=== PATIENT | female | born 1975 | race Caucasian/White ===

== ENCOUNTER → 2020-10-07 13:37 | Outpatient (CLI) | payer BC, SELFPAY ==
--- NOTE | ~2020-10-07 | MM_ITS ---
EXAMINATION: MM screening [facility] w ryder HISTORY: Screening mammogram TECHNIQUE: Craniocaudal and mediolateral oblique 3-D tomosynthesis images were obtained and synthetic 2-D images were generated. CAD analysis was submitted and interpreted. COMPARISON: 09/05/2018 bilateral digital screening mammogram 08/30/2017 diagnostic right digital mammogram and right breast ultrasound 08/14/2017 bilateral digital screening BREAST PARENCHYMAL COMPOSITION: There are scattered areas of fibroglandular density. FINDINGS: There is no evidence of suspicious mass, calcification, or architectural distortion to sugg est malignancy in either breast. There has been no suspicious interval change. IMPRESSION: 1. No mammographic evidence of malignancy. 2. Recommend routine screening mammography in one year. BI-RADS Category 1: Negative Reviewed, dictated and finalized at location A.
== END ==
PROVIDERS: Visit Provider Nurse Practitioner
DX: Z12.31 Encounter for screening mammogram for malignant neoplasm of breast (principal)
CPT/HCPCS: 77063; 77067

== ENCOUNTER 2021-04-21 22:05 | Emergency (ER) | payer BC, SELFPAY ==
[2021-04-21 22:22] VITALS: BP 130/79; PULSE 104; RESP 18; TEMP 36.5; O2SAT 98
[2021-04-22 00:25] VITALS: BP 144/97; PULSE 87; RESP 16; TEMP 36.6; O2SAT 100
[2021-04-22] MEDS: diazePAM INJ (*CRX) 10 MG/2 ML SYRINGE 5 MG IV PUSH (00:45)
[2021-04-22 00:51] LABS: Basophils Percent Auto 0.5 % (0.2-1.2); Eosinophils Percent Auto 0.2 % (0-4.4); Hematocrit 33.4 % (37.0-47.0); Hemoglobin 10.2 g/dL (12.0-15.0); Immature Granulocyte Absolute 0.01 K/mm3 (0.00-0.031); Immature Granulocyte Percent A 0.2 % (0-0.5); Lymphocytes Absolute Auto 0.76 K/mm3 (0.9-3.2); Lymphocytes Percent Auto 11.8 % (18.3-44.2); Mean Corpuscular HGB Conc 30.5 g/dl (32-36); Mean Corpuscular Hemoglobin 23.3 pg (26-34); Mean Corpuscular Volume 76.4 fl (80-100); Mean Platelet Volume 10.8 fl (7.4-10.4); Monocytes Absolute Auto 0.3 K/mm3 (0.1-0.6); Monocytes Percent Auto 4.4 % (2.6-8.5); Neutrophils Absolute Auto 5.3 K/mm3 (1.3-6.7); Neutrophils Percent Auto 82.9 % (45.5-73.1); Platelet Count Result 280 k/mm3 (150-375); Red Blood Count 4.37 M/mm3 (4.2-5.4); Red Cell Distribution Width 17.2 % (11.5-14.5); White Blood Count 6.4 K/mm3 (4.5-10.0)
[2021-04-22 01:02] LABS: Anion Gap 10 mmol/L (8-16); Blood Urea Nitrogen 10 mg/dL (7-17); Calcium 9.2 mg/dL (8.4-10.2); Carbon Dioxide 18 mmol/L (22-30); Chloride 113 mmol/L (98-107); Estimated CRCL calculation 87 ml/min; Estimated Glomerular Filt Rate > 60; Glucose 114 mg/dL (65-110); Potassium 3.9 mmol/L (3.4-5.0); Sodium 141 mmol/L (137-145)
[2021-04-22 01:03] VITALS: BP 127/82; PULSE 66; RESP 18; O2SAT 100
[2021-04-22 01:33] VITALS: O2SAT 100
[2021-04-22] MEDS: ONDANSETRON INJ 4 MG/2 ML VIAL IV PUSH (02:17)
[2021-04-22] MEDS: HYDROmorphone HCL INJ (*CRX) 1 MG/ML SYR IV PUSH (02:19)
[2021-04-22 02:25] VITALS: BP 119/61; PULSE 72; RESP 18; O2SAT 100
--- NOTE | 2021-04-22 03:15 | ED.GENADULT ---
HPI - General Adult General Chief complaint: Shortness of Breath/Dyspnea Stated complaint: Shortness of Breath/ leg pain Time Seen by Provider: 04/22/21 00:22 History of Present Illness HPI narrative: Patient is a 45-year-old female who presents ER with lower extremity pain. Patient reports that around 7 PM she began having squeezing sharp pains in her lower extremities. She reports when she walks she will occasionally get a little jerk or spasm. She reports she underwent battery replacement to her intrathecal pain pump at [facility] by Dr. Negro today. She has no fevers or chills or sweats. She has no back pain. She gave herself an additional pain bolus through her pump which did not help. No functional deficit. Related Data Home Medications Medication Instructions Recorded Confirmed amitriptyline 04/22/21 levothyroxine 04/22/21 omeprazole 04/22/21 ondansetron 04/22/21 topiramate 04/22/21 Allergies Allergy/AdvReac Type Severity Reaction Status Date / Time hydromorphone Allergy Mild RASH Verified 04/22/21 00:40 NAUSEA SWEATING latex Allergy Mild HIVES Verified 04/22/21 00:40 metoclopramide Allergy Mild BODY Verified 04/22/21 00:40 ACHING NAUSEA/VOMITING morphine Allergy Mild NAUSEA AND Verified 04/22/21 00:40 VOMITING HIVES ITCHING promethazine Allergy Mild RASH Verified 04/22/21 00:40 Penicillins Allergy Unknown Unknown Verified 04/22/21 00:40 Sulfa (Sulfonamide Allergy Unknown Unknown Verified 04/22/21 00:40 Antibiotics) sulfamethoxazole Allergy Unknown Unknown Verified 04/22/21 00:40 trimethoprim Allergy Unknown Unknown Verified 04/22/21 00:40 erythromycin base AdvReac Unknown Unknown Verified 04/22/21 00:40 TAPE ADHESIVE Allergy Mild BLISTER Uncoded 04/22/21 00:40 1. AMPICILLIN 2. SULFA 3. Allergy Unknown Unknown Uncoded 04/22/21 00:40 CEFZIL 4. EGG PROTEIN EGGS, HICKORY, PINE Allergy Unknown Unknown Uncoded 04/22/21 00:40 SULFAMERAZINE (Generic Allergy Unknown Y Uncoded 04/22/21 00:40 Allergy) Review of Systems Review of Systems: All systems reviewed & are unremarkable except as noted in HPI and below Constitutional: Constitutional: Denies chills, Denies fever(s) and Denies weakness ENT: Denies nasal congestion and Denies sore throat Cardiovascular: Cardiovascular: Denies chest pain, Denies rapid heart rate and Denies radiating jaw, neck or arm pain Respiratory: Respiratory: Denies cough and Denies dyspnea Gastrointestinal: Gastrointestinal: Denies abdominal pain, Denies diarrhea, Denies nausea and Denies vomiting Musculoskeletal: Musculoskeletal: Denies back pain, Denies arthralgias, Denies joint swelling and Reports muscle cramps Neurologic: Denies focal weakness and Denies numbness PMFSH Past Medical History Medical History (Updated 04/22/21 @ 03:38 by Andrea Martin MD) Asthma Chronic back pain Hypothyroidism Migraines Surgical History Surgical History (Updated 04/22/21 @ 03:34 by Andrea Martin MD) H/O dilation and curettage H/O gastric bypass History of cholecystectomy Previous back surgery Exam Narrative: GENERAL: Uncomfortable-appearing, well-nourished, and in no acute distress. HEAD: Normocephalic, atraumatic. ENT: Mucous membranes moist. CHEST: Clear to auscultation. No respiratory distress. HEART: Regular rate and rhythm. Normal peripheral pulses. ABDOMEN: Soft, nontender, nondistended, clean surgical scar with arslan in place. No surrounding cellulitis. No drainage or dehiscence. EXTREMITIES: Normal range of motion. No edema. No reproducible pain in the lower extremities. SKIN: Warm, dry, no rash. NEURO: No focal deficits. Alert and oriented x3. Course Course Emergency Course: Discussed case with patient's surgeon. He thinks symptoms may be related to interruption of the pump and patient is being underdosed. Recommends Dilaudid bolus troponin began through IV. He does not believe that shutting
[2021-04-22 03:33] VITALS: BP 135/62; PULSE 83; RESP 16; O2SAT 98
== END 2021-04-22 03:49 | disposition home or self-care (01) ==
PROVIDERS: Emergency Provider Emergency Medicine; PCP Internal Medicine Endocrinology, Diabetes & Metabolism
DX: M79.605 Pain in left leg (principal); M79.604 Pain in right leg; T40.2X6A Underdosing of other opioids, initial encounter; Z91.138 Patient's unintentional underdosing of medication regimen for other reason; J45.909 Unspecified asthma, uncomplicated; E03.9 Hypothyroidism, unspecified; Z98.84 Bariatric surgery status; Z97.8 Presence of other specified devices
CPT/HCPCS: 36415; 80048; 85025; 96374; 96375; 99284; J0131; J1170; J2405; J3360

== ENCOUNTER 2021-05-25 15:20 | Emergency (ER) | payer BC, SELFPAY ==
--- NOTE | ~2021-05-25 | XR_ITS ---
EXAMINATION: XR wrist RT min 3V EXAM DATE: 05/25/2021 17:17 INDICATION: Dog bite . Right hand and wrist pain. TECHNIQUE: Right hand frontal, lateral and oblique projections obtained and reviewed. Right wrist fro ntal, frontal with ulnar deviation, oblique and lateral projections obtained and reviewed. Comparison is made to prior examination from 05/25/2021. FINDINGS: Right metacarpal bones are unremarkable. Right wrist scapholunate joint space is maintain ed. Some swelling over the ulnar side of the hand and wrist and focus of subcutaneous gas or lacerati on. There are no acute fractures or dislocations identified. There is no subcutaneous gas. There ar e no radiopaque foreign bodies. IMPRESSION: Soft tissue swelling, laceration. Reviewed, dictated and finalized at location A. [employer]
--- NOTE | ~2021-05-25 | XR_ITS ---
EXAMINATION: XR hand RT min 3V EXAM DATE: 05/25/2021 17:18 INDICATION: Dog bite . Right hand and wrist pain. TECHNIQUE: Right hand frontal, lateral and oblique projections obtained and reviewed. Right wrist fro ntal, frontal with ulnar deviation, oblique and lateral projections obtained and reviewed. Comparison is made to prior examination from 05/25/2021. FINDINGS: Right metacarpal bones are unremarkable. Right wrist scapholunate joint space is maintain ed. Some swelling over the ulnar side of the hand and wrist and focus of subcutaneous gas or lacerati on. There are no acute fractures or dislocations identified. There is no subcutaneous gas. There ar e no radiopaque foreign bodies. IMPRESSION: Soft tissue swelling, laceration. Reviewed, dictated and finalized at location A. PULLER
[2021-05-25 15:32] VITALS: BP 133/74; PULSE 88; RESP 16; TEMP 36.6; O2SAT 100
--- NOTE | 2021-05-25 16:49 | ED.ANIMALBIT ---
HPI - Animal Bite General Chief Complaint: Animal Bite Stated Complaint: DOG BITE Time Seen by Provider: 05/25/21 16:36 Source: patient Mode of arrival: ambulatory Limitations: no limitations History of Present Illness HPI narrative: Patient presents with dog bite injury to right hand , right wrist and right buttock prior to arrival to the emergency room. Patient was trying to separate 2 of her dogs who were having sex at that time. The male dog bit the patient at the above sites. Patient denies other injuries Related Data Home Medications Medication Instructions Recorded Confirmed amitriptyline 04/22/21 levothyroxine 04/22/21 omeprazole 04/22/21 ondansetron 04/22/21 topiramate 04/22/21 Allergies Allergy/AdvReac Type Severity Reaction Status Date / Time hydromorphone Allergy Mild RASH Verified 04/22/21 00:40 NAUSEA SWEATING latex Allergy Mild HIVES Verified 04/22/21 00:40 metoclopramide Allergy Mild BODY Verified 04/22/21 00:40 ACHING NAUSEA/VOMITING morphine Allergy Mild NAUSEA AND Verified 04/22/21 00:40 VOMITING HIVES ITCHING promethazine Allergy Mild RASH Verified 04/22/21 00:40 Penicillins Allergy Unknown Unknown Verified 04/22/21 00:40 Sulfa (Sulfonamide Allergy Unknown Unknown Verified 04/22/21 00:40 Antibiotics) sulfamethoxazole Allergy Unknown Unknown Verified 04/22/21 00:40 trimethoprim Allergy Unknown Unknown Verified 04/22/21 00:40 erythromycin base AdvReac Unknown Unknown Verified 04/22/21 00:40 TAPE ADHESIVE Allergy Mild BLISTER Uncoded 04/22/21 00:40 1. AMPICILLIN 2. SULFA 3. Allergy Unknown Unknown Uncoded 04/22/21 00:40 CEFZIL 4. EGG PROTEIN EGGS, HICKORY, PINE Allergy Unknown Unknown Uncoded 04/22/21 00:40 SULFAMERAZINE (Generic Allergy Unknown Y Uncoded 04/22/21 00:40 Allergy) Review of Systems Review of Systems: CONSTITUTIONAL: Denies fever, chills, or sweats. EYES: Denies visual changes, redness, or discharge. ENT: Denies rhinorrhea, congestion, sore throat, or otalgia. CARDIOVASCULAR: Denies chest pain, palpitations, or edema. RESPIRATORY: Denies cough or dyspnea. GASTROINTESTINAL: Denies abdominal pain, nausea, vomiting, or diarrhea. GENITOURINARY: Denies dysuria or hematuria. SKIN: Denies rash or itching. MUSCULOSKELETAL: Denies back pain, joint pain, or myalgia. NEUROLOGIC: Denies headache, numbness, or weakness. PSYCHIATRIC: Denies anxiety or depression. [facility] Past Medical History Medical History Asthma Chronic back pain Hypothyroidism Migraines Surgical History Surgical History H/O dilation and curettage H/O gastric bypass History of cholecystectomy Previous back surgery Exam Narrative: General appearance: Well-developed, well-nourished Skin: Multiple puncture wound at the right hand and right wrist, multiple abrasions at the right buttock Head: Normocephalic, nontraumatic Chest and respiratory: Airway patent, no respiratory distress, no accessory muscle use Heart: Regular rate/rhythm Vascular: Normal peripheral pulses, normal capillary refill. Musculoskeletal: Limited range of motion of right fingers Neurologic: Alert and oriented ?3, C CONSULTANT is normal as tested, no gross motor deficit Course Course Emergency Course: Stable Vital Signs Vital signs: Vital Signs Temperature 36.6 C 05/25/21 15:32 Pulse Rate 88 05/25/21 15:32 Respiratory Rate 16 05/25/21 15:32 Blood Pressure 133/74 05/25/21 15:32 Pulse Oximetry 100 05/25/21 15:32 Temperature 36.6 C 05/25/21 15:32 Pulse Rate 88 05/25/21 15:32 Resp
[2021-05-25] MEDS: TETANUS,DIPHTHERIA,AC PERTUSSIS ADULT (0.5 ML) BOOSTRIX IM (17:09)
== END 2021-05-25 19:03 | disposition home or self-care (01) ==
PROVIDERS: Emergency Provider Emergency Medicine; PCP Internal Medicine Endocrinology, Diabetes & Metabolism
DX: S61.451A Open bite of right hand, initial encounter (principal); Z23 Encounter for immunization; Z98.84 Bariatric surgery status; J45.909 Unspecified asthma, uncomplicated; E03.9 Hypothyroidism, unspecified; W54.0XXA Bitten by dog, initial encounter
CPT/HCPCS: 73110; 73130; 90471; 90715; 99283

== ENCOUNTER 2021-10-04 11:08 | Emergency (ER) | payer BC, SELFPAY ==
--- NOTE | ~2021-10-04 | XR_ITS ---
EXAMINATION: XR tibia fibula LT 2V DATE: 10/04/2021 11:34 INDICATION: Pain at the anterior distal left tibia/fibular post injury TECHNIQUE: Anteroposterior and lateral views of the left tibia and fibula were obtained. COMPARISON: None. FINDINGS: Alignment is normal. No fracture. Joint spaces are normal. Mild soft tissue along with subcutaneous e caty at the anterior mid to distal lower leg. IMPRESSION: 1. No osseous abnormality. Reviewed, dictated and finalized at location A. IMPRESSION: 1. No osseous abnormality.
[2021-10-04 11:18] VITALS: BP 144/69; PULSE 82; RESP 16; TEMP 36.7; O2SAT 100
--- NOTE | 2021-10-04 11:54 | ED.LOWEXIN ---
HPI - Extremity Injury (Lower) General Chief Complaint: Extremity Injury, Lower Stated Complaint: left leg pain Time Seen by Provider: 10/04/21 11:31 Source: patient and RN notes reviewed Mode of arrival: ambulatory Limitations: no limitations History of Present Illness HPI Narrative: Patient presents today complaining of left anterior lower leg pain x3 to 4 days ago after she struck her lower leg on a concrete block at home while chasing a puppy. Denies numbness or tingling. She currently rates her pain 3/10 at rest, which increases with any weightbearing. She is been taking Aleve without relief. Patient states she also has significant neuropathy in her back and lower legs and has a pain pump. MD complaint: leg injury Related Data Home Medications Medication Instructions Recorded Confirmed levothyroxine 04/22/21 omeprazole 04/22/21 ondansetron 04/22/21 topiramate 04/22/21 cyanocobalamin (vitamin B-12) 10/04/21 epinephrine 10/04/21 fluoxetine mg 10/04/21 meloxicam 10/04/21 rizatriptan mg 10/04/21 tizanidine mg 10/04/21 Allergies Allergy/AdvReac Type Severity Reaction Status Date / Time hydromorphone Allergy Mild RASH Verified 04/22/21 00:40 NAUSEA SWEATING latex Allergy Mild HIVES Verified 04/22/21 00:40 metoclopramide Allergy Mild BODY Verified 04/22/21 00:40 ACHING NAUSEA/VOMITING morphine Allergy Mild NAUSEA AND Verified 04/22/21 00:40 VOMITING HIVES ITCHING promethazine Allergy Mild RASH Verified 04/22/21 00:40 Penicillins Allergy Unknown Unknown Verified 10/04/21 11:54 Sulfa (Sulfonamide Allergy Unknown Unknown Verified 04/22/21 00:40 Antibiotics) sulfamethoxazole Allergy Unknown Unknown Verified 04/22/21 00:40 trimethoprim Allergy Unknown Unknown Verified 04/22/21 00:40 kiwi Allergy Rash Verified 10/04/21 11:55 vancomycin Allergy Rash Verified 10/04/21 11:57 water chestnut Allergy Headache Verified 10/04/21 11:57 erythromycin base AdvReac Unknown Unknown Verified 04/22/21 00:40 TAPE ADHESIVE Allergy Mild BLISTER Uncoded 04/22/21 00:40 1. AMPICILLIN 2. SULFA 3. Allergy Unknown Unknown Uncoded 04/22/21 00:40 CEFZIL 4. EGG PROTEIN EGGS, HICKORY, PINE Allergy Unknown Unknown Uncoded 04/22/21 00:40 SULFAMERAZINE (Generic Allergy Unknown Y Uncoded 04/22/21 00:40 Allergy) agava Allergy Difficulty Uncoded 10/04/21 11:56 Breathing artificial alice Allergy Rash Uncoded 10/04/21 11:56 Review of Systems Review of Systems: CONSTITUTIONAL: Denies body aches, fever, chills, or sweats. EYES: Denies visual changes, redness, or discharge. ENT: Denies rhinorrhea, congestion, sore throat, or otalgia. CARDIOVASCULAR: Denies chest pain, palpitations, or edema. RESPIRATORY: Denies cough or dyspnea. GASTROINTESTINAL: Denies abdominal pain, nausea, vomiting, or diarrhea. GENITOURINARY: Denies dysuria or hematuria. SKIN: Denies rash, itching, or wounds. MUSCULOSKELETAL: Denies back pain. + Left lower leg pain NEUROLOGIC: Denies headache, numbness, tingling, or weakness. PSYCH: Denies depression or anxiety. [facility] Past Medical History Medical History (Updated 10/04/21 @ 11:58 by Kizzy Ceja, CHILDREN'S PROGRAM COORDINATOR, ) Asthma Chronic back pain Hypothyroidism Migraines Neuropathy Surgical History Surgical History H/O dilation and curettage H/O gastric bypass History of cholecystectomy Previous back surgery Comments At time of signature, I have reviewed and agree with nursing past medical, surgical, social and family history unless otherwise noted. Please see nursing chart for further information. There is no relevant family history pertinent to the presenting complaint Exam Narrative: GENERAL: Well-appearing, well-nourished, and in no acute distress. HEAD: Normocephalic, atraumatic. EYES: EOMI. No redness or drainage. Conjunctivae normal. ENT: Mucous membranes pink and moist. NECK: Nor
== END 2021-10-04 12:00 | disposition home or self-care (01) ==
PROVIDERS: Emergency Provider Nurse Practitioner; PCP Internal Medicine Endocrinology, Diabetes & Metabolism
DX: S80.12XA Contusion of left lower leg, initial encounter (principal); W22.8XXA Striking against or struck by other objects, initial encounter; J45.909 Unspecified asthma, uncomplicated; E03.9 Hypothyroidism, unspecified; G62.9 Polyneuropathy, unspecified; Z98.84 Bariatric surgery status
CPT/HCPCS: 73590; 99213; G0463

== ENCOUNTER → 2021-10-24 10:04 | Outpatient (CLI) | payer BC, SELFPAY ==
--- NOTE | ~2021-10-24 | MM_ITS ---
EXAMINATION: MM screening [facility] BI w ryder HISTORY: Screening TECHNIQUE: Craniocaudal and mediolateral oblique 3-D tomosynthesis images were obtained and synthetic 2-D images were generated. CAD analysis was submitted and interpreted. COMPARISON: Comparison to multiple prior studies sequentially, with oldest reviewed study dated 08/2017. BREAST PARENCHYMAL COMPOSITION: There are scattered areas of fibroglandular density. FINDINGS: There is no evidence of suspicious mass, calcification, or architectural distortion to sugg est malignancy in either breast. There has been no suspicious interval change. IMPRESSION: 1. No mammographic evidence of malignancy. 2. Recommend routine screening mammography in one year. BI-RADS Category 1: Negative Reviewed, dictated and finalized at location A.
== END ==
PROVIDERS: PCP Internal Medicine Endocrinology, Diabetes & Metabolism; Visit Provider Nurse Practitioner
DX: Z12.31 Encounter for screening mammogram for malignant neoplasm of breast (principal)
CPT/HCPCS: 77063; 77067

== ENCOUNTER 2022-01-24 21:20 | Emergency (ER) | payer BC, SELFPAY ==
--- NOTE | 2022-01-24 21:21 | ECG_ITS ---
Measurements Intervals Drew Rate: 83 P: 60 NM: 135 QRS: 45 QRSD: 89 T: 30 QT: 394 QTc: 463 Interpretive Statements SINUS RHYTHM POSSIBLE LEFT ATRIAL ENLARGEMENT BORDERLINE ECG NO PREVIOUS ECG AVAILABLE FOR COMPARISON Electronically Signed On 01-25-2022 14:34:19 CDT by Jason Aguero M.D.
[2022-01-24 21:26] VITALS: BP 171/86; PULSE 90; RESP 20; TEMP 36.8; O2SAT 100
--- NOTE | 2022-01-24 21:47 | ED.ARRPALP ---
HPI - Arrhythmia/Palpitations General Chief Complaint: Arrhythmia/Palpitations Stated Complaint: my heart keeps fluttering , sob Time Seen by Provider: 01/24/22 21:39 History of Present Illness HPI narrative: 46-year-old female presents emergency room secondary palpitations. She states she has had these off and on for many years. However she not had any for the last 2 or 3 years. Went out today and ate some ice cream and afterwards felt like she had recurrent episodes of her heart fluttering and some nonspecific discomfort in her chest at the same time. It is resolved now. 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 There is a strong family history of cardiac disease. Her 20-year-old son is here and supposedly he has had 2 myocardial infarctions. Patient had bariatric surgery and lost about 150 pounds. She denies any exertional chest pain. No shortness of breath. She states she feels fine at this time. Related Data Home Medications Medication Instructions Recorded Confirmed levothyroxine 125 mcg tablet 04/22/21 omeprazole 20 mg capsule,delayed 04/22/21 release ondansetron 8 mg disintegrating 04/22/21 tablet topiramate 50 mg tablet 04/22/21 Iron Supplement 10/04/21 cyanocobalamin (vitamin B-12) 10/04/21 1,000 mcg/mL injection solution epinephrine 0.3 mg/0.3 mL 10/04/21 injection, auto-injector fluoxetine 40 mg capsule mg 10/04/21 meloxicam 15 mg tablet 10/04/21 rizatriptan 10 mg disintegrating mg 10/04/21 tablet tizanidine 4 mg tablet mg 10/04/21 Allergies Allergy/AdvReac Type Severity Reaction Status Date / Time hydromorphone Allergy Mild RASH Verified 04/22/21 00:40 NAUSEA SWEATING latex Allergy Mild HIVES Verified 04/22/21 00:40 metoclopramide Allergy Mild BODY Verified 04/22/21 00:40 ACHING NAUSEA/VOMITING morphine Allergy Mild NAUSEA AND Verified 04/22/21 00:40 VOMITING HIVES ITCHING promethazine Allergy Mild RASH Verified 04/22/21 00:40 Penicillins Allergy Unknown Unknown Verified 10/04/21 11:54 Sulfa (Sulfonamide Allergy Unknown Unknown Verified 04/22/21 00:40 Antibiotics) sulfamethoxazole Allergy Unknown Unknown Verified 04/22/21 00:40 trimethoprim Allergy Unknown Unknown Verified 04/22/21 00:40 kiwi Allergy Rash Verified 10/04/21 11:55 vancomycin Allergy Rash Verified 10/04/21 11:57 water chestnut Allergy Headache Verified 10/04/21 11:57 erythromycin base AdvReac Unknown Unknown Verified 04/22/21 00:40 TAPE ADHESIVE Allergy Mild BLISTER Uncoded 04/22/21 00:40 1. AMPICILLIN 2. SULFA 3. Allergy Unknown Unknown Uncoded 04/22/21 00:40 CEFZIL 4. EGG PROTEIN EGGS, HICKORY, PINE Allergy Unknown Unknown Uncoded 04/22/21 00:40 SULFAMERAZINE (Generic Allergy Unknown Y Uncoded 04/22/21 00:40 Allergy) agava Allergy Difficulty Uncoded 10/04/21 11:56 Breathing artificial alice Allergy Rash Uncoded 10/04/21 11:56 byscodol Allergy Numbness Uncoded 10/04/21 11:58 Review of Systems Review of Systems: CONSTITUTIONAL: Denies fever, chills, or sweats. EYES: Denies visual changes, redness, or discharge. ENT: Denies rhinorrhea, congestion, sore throat, or otalgia. CARDIOVASCULAR: Palpitations as noted in HPI.. RESPIRATORY: Denies cough or dyspnea. GASTROINTESTINAL: Denies abdominal pain, nausea, vomiting, or diarrhea. GENITOURINARY: Denies dysuria or hematuria. SKIN: Denies rash or itching. MUSCULOSKELETAL: Denies back pain, joint pain, or myalgia. NEUROLOGIC: Denies headache, numbness, or weakness. PSYCHIATRIC: Denies anxiety or depression. [facility] Past Medical History Medical History Asthma Chronic back pain Hypothyroidism Migraines Neuropathy Surgical History Surgical History H/O dilation and curettage H/O gastric bypass History of cholecystectomy Previous ba
[2022-01-24 22:04] LABS: Basophils Absolute Auto 0.1 K/mm3 (0.0-0.1); Basophils Percent Auto 1.2 % (0.2-1.2); Eosinophils Absolute Auto 0.6 K/mm3 (0-0.3); Eosinophils Percent Auto 10.1 % (0-4.4); Hematocrit 42.1 % (37.0-47.0); Hemoglobin 13.7 g/dL (12.0-15.0); Immature Granulocyte Absolute 0.01 K/mm3 (0.00-0.031); Immature Granulocyte Percent A 0.2 % (0-0.5); Lymphocytes Absolute Auto 2.44 K/mm3 (0.9-3.2); Lymphocytes Percent Auto 41.1 % (18.3-44.2); Mean Corpuscular HGB Conc 32.5 g/dl (32-36); Mean Corpuscular Hemoglobin 29.8 pg (26-34); Mean Corpuscular Volume 91.7 fl (80-100); Mean Platelet Volume 11.1 fl (7.4-10.4); Monocytes Absolute Auto 0.4 K/mm3 (0.1-0.6); Monocytes Percent Auto 6.9 % (2.6-8.5); Neutrophils Absolute Auto 2.4 K/mm3 (1.3-6.7); Neutrophils Percent Auto 40.5 % (45.5-73.1); Platelet Count Result 234 k/mm3 (150-375); Red Blood Count 4.59 M/mm3 (4.2-5.4); Red Cell Distribution Width 13.4 % (11.5-14.5); White Blood Count 5.9 K/mm3 (4.5-10.0)
[2022-01-24 22:13] LABS: Alanine Aminotransferase 36 U/L (6-35); Albumin Level 4.3 g/dL (3.5-5.1); Alkaline Phosphatase 83 U/L (38-126); Anion Gap 9 mmol/L (8-16); Aspartate Amino Transferase 47 U/L (14-36); Bilirubin,Total 0.6 mg/dL (0.2-1.3); Blood Urea Nitrogen 10 mg/dL (7-17); Carbon Dioxide 24 mmol/L (22-30); Chloride 103 mmol/L (98-107); Estimated Glomerular Filt Rate > 60; Glucose 162 mg/dL (65-110); Potassium 3.5 mmol/L (3.4-5.0); Sodium 136 mmol/L (137-145)
[2022-01-24 22:25] LABS: Troponin I < 0.012 ng/mL (0.000-0.034)
[2022-01-24 22:55] VITALS: BP 137/87; PULSE 82; RESP 15; O2SAT 96
== END 2022-01-24 22:56 | disposition home or self-care (01) ==
PROVIDERS: Emergency Provider Emergency Medicine; PCP Internal Medicine Endocrinology, Diabetes & Metabolism
DX: R00.2 Palpitations (principal); Z98.84 Bariatric surgery status; J45.909 Unspecified asthma, uncomplicated; E03.9 Hypothyroidism, unspecified; G62.9 Polyneuropathy, unspecified; R94.31 Abnormal electrocardiogram [ECG] [EKG]
CPT/HCPCS: 36415; 80053; 84484; 85025; 93005; 99284

== ENCOUNTER 2023-07-22 13:31 | Emergency (ER) | payer BC, SELFPAY ==
--- NOTE | ~2023-07-22 | CT_ITS ---
EXAMINATION: CT abdomen pelvis w con DATE: 07/22/2023 22:54 INDICATION: Right lower quadrant abdominal pain. Nausea. TECHNIQUE: Computed tomography (CT) of the abdomen and pelvis was performed with 100 mL Omnipaque 350 intravenous contrast. Automated exposure control and iterative reconstruction technique were employe d. The dose-length product was 854.88 mGy-cm. COMPARISON: None. FINDINGS: The visualized portions of the lung bases are clear without pneumonia or pleural effusion. The heart size is normal. No pericardial effusion. The liver and spleen are normal. There are changes of cholecystectomy. There are changes of gastric bypass procedure. The pancreas, adrenal glands, and kidneys are normal. There are no dilated loops of bowel. The appendix is not visualized. There are n o pathologically enlarged lymph nodes. There is no free intraperitoneal fluid. There is a subcutaneou s pump in the right anterior abdomen with intrathecal catheter. There is severe thoracic and lumbar s pondylosis. There are changes of anterior fusion procedure at L5-S1. IMPRESSION: 1. No etiology for the patient's symptoms. Reviewed, dictated and finalized at location E. ESS SALES ASSOCIATE
--- NOTE | ~2023-07-22 | US_ITS ---
EXAMINATION: US pelvic complete w TV DATE: 07/22/2023 23:43 INDICATION: Right pelvic pain. TECHNIQUE: Multiple transabdominal and transvaginal sonographic images of the pelvis were obtained. COMPARISON: CT abdomen and pelvis 07/22/2023, pelvis ultrasound 09/05/2018 FINDINGS: TRANSABDOMINAL ULTRASOUND: The uterus measures 8.2 x 4.9 x 5.6 cm. There is no free fluid in the pelvis. TRANSVAGINAL ULTRASOUND: The endometrial complex measures 8 mm in thickness. The right ovary measures 3.5 x 2.1 x 2.2 cm. Ther e is a 2.8 cm cyst with peripheral low level echoes in right ovary. The left ovary measures 3.2 x 1.4 x 1.6 cm. There is normal vascular flow in the ovaries. IMPRESSION: 1. 2.8 cm cyst with peripheral low level echoes in right ovary, probably benign. Pelvis MRI without a nd with contrast is recommended. Reviewed, dictated and finalized at location E. RIUM TANK ATTENDANT IMPRESSION: 1. 2.8 cm cyst with peripheral low level echoes in right ovary, probably benign . Pelvis MRI without and with contrast is recommended.
[2023-07-22 14:29] VITALS: BP 168/98; PULSE 66; RESP 16; TEMP 36.7; O2SAT 100
[2023-07-22 19:52] VITALS: BP 184/92; PULSE 70; RESP 18; TEMP 36.5; O2SAT 100
[2023-07-22 20:59] LABS: Basophils Absolute Auto 0.1 K/mm3 (0.0-0.1); Basophils Percent Auto 0.8 % (0.2-1.2); Eosinophils Absolute Auto 0.5 K/mm3 (0-0.3); Hematocrit 42.9 % (37.0-47.0); Immature Granulocyte Absolute 0.01 K/mm3 (0.00-0.031); Immature Granulocyte Percent A 0.1 % (0-0.5); Lymphocytes Absolute Auto 3.62 K/mm3 (0.9-3.2); Lymphocytes Percent Auto 43.4 % (18.3-44.2); Mean Corpuscular HGB Conc 32.6 g/dl (32-36); Mean Corpuscular Hemoglobin 29.6 pg (26-34); Mean Corpuscular Volume 90.7 fl (80-100); Mean Platelet Volume 9.9 fl (7.4-10.4); Monocytes Absolute Auto 0.4 K/mm3 (0.1-0.6); Monocytes Percent Auto 5.1 % (2.6-8.5); Neutrophils Absolute Auto 3.7 K/mm3 (1.3-6.7); Neutrophils Percent Auto 44.6 % (45.5-73.1); Platelet Count Result 353 k/mm3 (150-375); Red Blood Count 4.73 M/mm3 (4.2-5.4); Red Cell Distribution Width 13.5 % (11.5-14.5); White Blood Count 8.4 K/mm3 (4.5-10.0)
[2023-07-22 21:08] LABS: Alanine Aminotransferase 27 U/L (6-35); Albumin Level 4.6 g/dL (3.5-5.1); Alkaline Phosphatase 120 U/L (38-126); Anion Gap 8 mmol/L (8-16); Aspartate Amino Transferase 34 U/L (14-36); Bilirubin,Total 0.9 mg/dL (0.2-1.3); Blood Urea Nitrogen 6 mg/dL (7-17); Calcium 9.2 mg/dL (8.4-10.2); Carbon Dioxide 25 mmol/L (22-30); Chloride 102 mmol/L (98-107); Estimated Glomerular Filt Rate > 60; Glucose 87 mg/dL (65-110); Lipase 89 U/L (23-300); Potassium 3.6 mmol/L (3.4-5.0); Sodium 135 mmol/L (137-145)
[2023-07-22 21:19] LABS: Appearance Urine Clear (Clear); Bilirubin Urine Negative (Negative); Blood Urine Negative (Negative); Color Urine Yellow (Yellow); Glucose Urine UA Negative (Negative); Ketones Urine Negative (Negative); Leukocyte Esterase Ur Negative LEU/UL (Negative); Nitrate Urine Negative (Negative); Protein Urine Negative (Negative); Specific Grav Ur 1.005 (1.001-1.035); Urobilinogen Urine 0.2 mg/dL (<2.0); pH Urine 5.5 (5.0-9.0)
[2023-07-22 21:20] LABS: Add Urine Microscopic? NO
[2023-07-22 22:00] VITALS: PULSE 62; RESP 12; O2SAT 100
[2023-07-22 22:10] VITALS: BP 175/101; PULSE 63; RESP 35; O2SAT 100
[2023-07-22 22:16] VITALS: BP 148/85; PULSE 65; RESP 15; O2SAT 100
[2023-07-22 22:30] VITALS: BP 145/84; PULSE 66; RESP 13; O2SAT 100
[2023-07-22] MEDS: ONDANSETRON INJ 4 MG/2 ML VIAL IV PUSH (23:10)
[2023-07-22] MEDS: HYDROmorphone HCL INJ (*CRX) 1 MG/ML SYR 0.5 MG IV PUSH (23:10)
[2023-07-22] MEDS: SODIUM CHLORIDE 0.9% IV 1,000 ML 999 ML IV CONT (23:11)
[2023-07-23] MEDS: KETOROLAC 30 MG/ML VIAL (*BKC) IV PUSH (00:13)
--- NOTE | 2023-07-23 01:08 | ED.ABDPAIN ---
HPI - Abdominal Pain General Chief Complaint: Abdominal Pain Stated Complaint: abd pain Time Seen by Provider: 07/22/23 20:48 Source: patient Mode of arrival: ambulatory Limitations: no limitations History of Present Illness HPI narrative: Patient is a 48-year-old female, with PMH of gastric bypass surgery, chronic back pain with intrathecal Dilaudid pain pump, who presents the ED with report of right pelvic pain. Patient reports having pain since yesterday, but states pain became worse today and more severe. Pain is fairly constant. She tried taking Tylenol and ibuprofen today without improvement. Patient notes history of ovarian cysts and report pain feels similar to this. She reports nausea associated with pain, denies vomiting, denies diarrhea or constipation. Denies urinary complaints. Denies vaginal bleeding. Related Data Home Medications Medication Instructions Recorded Confirmed levothyroxine 125 mcg tablet 04/22/21 omeprazole 20 mg capsule,delayed 04/22/21 release ondansetron 8 mg disintegrating 04/22/21 tablet topiramate 50 mg tablet 04/22/21 Iron Supplement 10/04/21 cyanocobalamin (vitamin B-12) 10/04/21 1,000 mcg/mL injection solution epinephrine 0.3 mg/0.3 mL 10/04/21 injection, auto-injector fluoxetine 40 mg capsule mg 10/04/21 meloxicam 15 mg tablet 10/04/21 rizatriptan 10 mg disintegrating mg 10/04/21 tablet tizanidine 4 mg tablet mg 10/04/21 Allergies Allergy/AdvReac Type Severity Reaction Status Date / Time hydromorphone Allergy Mild RASH Verified 07/22/23 22:09 NAUSEA SWEATING latex Allergy Mild HIVES Verified 07/22/23 22:09 metoclopramide Allergy Mild BODY Verified 07/22/23 22:09 ACHING NAUSEA/VOMITING morphine Allergy Mild NAUSEA AND Verified 07/22/23 22:09 VOMITING HIVES ITCHING promethazine Allergy Mild RASH Verified 07/22/23 22:09 Penicillins Allergy Unknown Unknown Verified 07/22/23 22:09 Sulfa (Sulfonamide Allergy Unknown Unknown Verified 07/22/23 22:09 Antibiotics) sulfamethoxazole Allergy Unknown Unknown Verified 07/22/23 22:09 trimethoprim Allergy Unknown Unknown Verified 07/22/23 22:09 kiwi Allergy Rash Verified 07/22/23 22:09 vancomycin Allergy Rash Verified 07/22/23 22:09 water chestnut Allergy Headache Verified 07/22/23 22:09 erythromycin base AdvReac Unknown Unknown Verified 07/22/23 22:09 TAPE ADHESIVE Allergy Mild BLISTER Uncoded 04/22/21 00:40 1. AMPICILLIN 2. SULFA 3. Allergy Unknown Unknown Uncoded 04/22/21 00:40 CEFZIL 4. EGG PROTEIN EGGS, HICKORY, PINE Allergy Unknown Unknown Uncoded 04/22/21 00:40 SULFAMERAZINE (Generic Allergy Unknown Y Uncoded 04/22/21 00:40 Allergy) agava Allergy Difficulty Uncoded 10/04/21 11:56 Breathing artificial alice Allergy Rash Uncoded 10/04/21 11:56 byscodol Allergy Numbness Uncoded 10/04/21 11:58 Review of Systems Review of Systems: CONSTITUTIONAL: Denies fever, chills, or sweats. CARDIOVASCULAR: Denies chest pain. RESPIRATORY: Denies dyspnea. GASTROINTESTINAL: See HPI. GENITOURINARY: Denies dysuria or hematuria. All systems reviewed & are unremarkable except as noted in HPI and below PMFSH Past Medical History Medical History Asthma Chronic back pain Hypothyroidism Migraines Neuropathy Surgical History Surgical History H/O dilation and curettage H/O gastric bypass History of cholecystectomy Previous back surgery Exam Narrative: GENERAL: Well appearing, well-nourished, non-toxic, in no acute distress. HEAD: Normocephalic, atraumatic. RESPIRATORY: Airway patent, respirations nonlabored. Clear to auscultation bilaterally, no rales, rhonchi, wheezing. CARDIOVASCULAR: Regular rate and rhythm without murmurs, rubs, or gallops. ABDOMINAL: Soft, Tenderness palpation in right lower abdomen, right pelv
== END 2023-07-23 01:42 | disposition home or self-care (01) ==
PROVIDERS: Emergency Medicine; Emergency Provider Physician Assistant; PCP Internal Medicine Endocrinology, Diabetes & Metabolism
DX: N83.201 Unspecified ovarian cyst, right side (principal); J45.909 Unspecified asthma, uncomplicated; E03.9 Hypothyroidism, unspecified; G62.9 Polyneuropathy, unspecified; Z98.84 Bariatric surgery status; Z90.49 Acquired absence of other specified parts of digestive tract
CPT/HCPCS: 36415; 74177; 76830; 76856; 80053; 81003; 81025; 83690; 85025; 96361; 96374; 96375; 99284; J1170; J1885; J2405; J7030; Q9967

== ENCOUNTER 2023-09-06 07:34 | Outpatient (CLI) | payer BC, SELFPAY ==
--- NOTE | ~2023-09-06 | US_ITS ---
EXAMINATION: US pelvic complete DATE: Follow-up ovarian cysts INDICATION: Ultrasound dated 07/22/2023 Comparison:Ultrasound dated 07/22/2023 TECHNIQUE: Multiple transabdominal sonographic images of the pelvis performed. FINDINGS: The uterus measures 7.8 x 4.2 x 5.4 cm. The endometrial complex measures 7 mm. The right ovary measures 3.3 x 2.2 x 1.7 cm and the left ovary measures 2.8 x 1.3 x 1.5 cm. There ar e small follicles in each ovary. Normal doppler signal in both ovaries. There is no free fluid in the pelvis. There are no abnormal masses seen on either side. IMPRESSION: 1. Unremarkable pelvic ultrasound. Reviewed, dictated and finalized at location B.
== END 2023-09-06 07:35 ==
LOC: MICIMG 07:35
PROVIDERS: PCP Advanced Practice Midwife; Visit Provider Advanced Practice Midwife
DX: N83.201 Unspecified ovarian cyst, right side (principal)
CPT/HCPCS: 76856

== ENCOUNTER 2024-01-06 10:20 | Outpatient (CLI) | payer BC, SELFPAY ==
--- NOTE | ~2024-01-06 | MM_ITS ---
EXAMINATION: MM screening [facility] w ryder HISTORY: Screening TECHNIQUE: Craniocaudal and mediolateral oblique 3-D tomosynthesis images were obtained and synthetic 2-D images were generated. CAD analysis was submitted and interpreted. COMPARISON: Comparison to multiple prior studies sequentially, with oldest reviewed study dated 08/2027. BREAST PARENCHYMAL COMPOSITION: Not dense: There are scattered areas of fibroglandular density. FINDINGS: There is no evidence of suspicious mass, calcification, or architectural distortion to sugg est malignancy in either breast. There has been no suspicious interval change. IMPRESSION: 1. No mammographic evidence of malignancy. 2. Recommend routine screening mammography in one year. BI-RADS Category 1: Negative Reviewed, dictated and finalized at location B.
== END 2024-01-06 10:21 ==
LOC: MICIMG 10:21
PROVIDERS: PCP Nurse Practitioner; Visit Provider Nurse Practitioner
DX: Z12.31 Encounter for screening mammogram for malignant neoplasm of breast (principal)
CPT/HCPCS: 77063; 77067

== ENCOUNTER 2025-03-07 10:55 | Outpatient (CLI) | payer BC, SELFPAY ==
--- NOTE | ~2025-03-07 | MM_ITS ---
EXAMINATION: MM screening [facility] BI w ryder HISTORY: Screening TECHNIQUE: Craniocaudal and mediolateral oblique 3-D tomosynthesis images were obtained and synthetic 2-D images were generated. CAD analysis was submitted and interpreted. COMPARISON: 10/07/2020 BREAST PARENCHYMAL COMPOSITION: There are scattered areas of fibroglandular density. FINDINGS: There is no evidence of suspicious mass, calcification, or architectural distortion to suggest malignancy. Asymmetry in the medial right breast, middle depth, seen in the right cc projection. IMPRESSION: 1. Asymmetry in the medial right breast, middle depth, seen in the right cc projection. The study is incomplete. A diagnostic mammogram and a diagnostic ultrasound are recommended. 2. No mammographic evidence for malignancy left breast. BI-RADS 0: Incomplete-Need additional imaging evaluation. Reviewed, dictated and finalized at location Q. IMPRESSION: 1. Asymmetry in the medial right breast, middle depth, seen in the right cc pro jection. The study is incomplete. A diagnostic mammogram and a diagnostic ultra sound are recommended. 2. No mammographic evidence for malignancy left breast. BI-RADS 0: Incomplete-Need additional imaging evaluation.
== END 2025-03-07 10:56 | disposition home or self-care (01) ==
LOC: MICIMG 10:56
PROVIDERS: PCP Nurse Practitioner; Visit Provider Nurse Practitioner
DX: Z13.21 Encounter for screening for nutritional disorder (principal); R92.8 Other abnormal and inconclusive findings on diagnostic imaging of breast
CPT/HCPCS: 77063; 77067

== ENCOUNTER 2025-04-18 08:49 | Outpatient (CLI) | payer BC, SELFPAY ==
--- NOTE | ~2025-04-18 | MM_ITS ---
EXAMINATION: MM diagnostic mesha RT w ryder INDICATION: 49-year old female; BI-RADS 0, callback to evaluate Right breast asymmetry. COMPARISON: 01/06/2024 and 03/07/2025 TECHNIQUE: Digital breast tomosynthesis True lateral view and spot compression pain CC and MLO views of Right breast were obtained with computer-aided detection to assist in interpretation of the study. FINDINGS: There are scattered areas of fibroglandular density. The asymmetry seen in the Medial Right breast on the screening mammogram effaces on additional views, compatible with normal overlapping tissue.. IMPRESSION: Right breast finding represents superimposition of fibroglandular tissue. No further investigation necessary. RECOMMENDATION: Annual screening mammography in 12 months BI-RADS 2, BENIGN Reviewed, dictated and finalized at location B. TESTER IMPRESSION: Right breast finding represents superimposition of fibroglandular tissue. No fu rther investigation necessary. RECOMMENDATION: Annual screening mammography in 12 months BI-RADS 2, BENIGN
== END 2025-04-18 08:50 | disposition home or self-care (01) ==
LOC: MICIMG 08:50
PROVIDERS: PCP Obstetrics & Gynecology Gynecology; Visit Provider Obstetrics & Gynecology Gynecology
DX: R92.8 Other abnormal and inconclusive findings on diagnostic imaging of breast (principal)
CPT/HCPCS: 77061; 77065; G0279